=== PATIENT | female | born 1985 | race Caucasian/White ===

== ENCOUNTER 2018-07-12 22:24 | Emergency (ER) | payer MEDICAID, MEDICARE ==
[~2018-07-12] VITALS: Ht 170.2 cm; Wt 76.1 kg
[~2018-07-12 22:24] MED LIST: AMOX1TAB64 PO; BISA5TAB5 PO; HYDR200T72 PO; INSU100C5 SQ-INSULIN; INSU100V8 SQ; MAGN100T6 PO; METF500T17 PO; METO5TAB57 PO; OXYC-302 PO; OXYC-307 PO; POLY17PO5 PO; SENN-177 PO; SERT100T PO; TRAM50TA2 PO
[2018-07-12 22:27] VITALS: BP 157/82
[2018-07-12] MEDS ORDERED: AMOXICILLIN/CLAV 875-125MG TABLET PO STA (22:46)
[2018-07-12] MEDS ORDERED: HYDROcodone/APAP 10/325 MG TABLET PO STA (22:46)
[2018-07-12] MEDS ORDERED: HYDROcodone/APAP 10/325 MG TABLET ONE (22:56)
[2018-07-12] MEDS ORDERED: AMOXICILLIN/CLAV 875-125MG TABLET ONE (22:57)
== END 2018-07-12 23:09 | disposition home or self-care (01) ==
LOC: MERGE 22:50 → ED 22:50
DX: K08.89 Other specified disorders of teeth and supporting structures (principal); I10 Essential (primary) hypertension; J02.9 Acute pharyngitis, unspecified
CPT/HCPCS: 99283

== ENCOUNTER 2018-07-13 18:05 | Emergency (ER) | payer MEDICARE, MEDICAID ==
[~2018-07-13] VITALS: Ht 170.2 cm; Wt 73.7 kg
[2018-07-13] MEDS ORDERED: OXYcodone/APAP 5/325MG TABLET PO ONE (18:30)
[2018-07-13] MEDS ORDERED: OXYcodone/APAP 5/325MG TABLET ONE (18:34)
--- NOTE | 2018-07-13 18:38 | NUR ---
PT AMBULATORY TO ROOM 7 W/ C/O DENTAL PAIN X 2 DAYS. STATES SHE CHIPPED HER TOOTH 2 DAYS AGO AND WAS SEEN HERE LAST NOC FOR SEVERE DENTAL PAIN. PT STATES PAIN IS WORSNEED TODAY. PT RESTING ON GURNEY. TEARFUL IN ROOM. MEDICATED PER APR.
[2018-07-13 19:12] VITALS: BP 149/91
== END 2018-07-13 19:15 | disposition home or self-care (01) ==
LOC: ED 19:05
DX: K02.9 Dental caries, unspecified (principal)
CPT/HCPCS: 99283